=== PATIENT | female | born 1940 | race Caucasian/White ===

== ENCOUNTER 2017-11-14 08:34 | Emergency (ER) | payer MEDICARE ==
[2017-11-14] MEDS ORDERED: Diph,Pert(Acell),Tet Vac 0.5 ML SYR IM ONE (08:52)
--- NOTE | 2017-11-14 08:55 | Emergency Department Record ---
History of Present Illness - General Chief Complaint: Fall Injury Stated Complaint: FALL Time Seen by Provider: 11/14/17 08:50 Mode of Arrival: Ambulatory - History of Present Illness Initial Comments: patient fell 13 hours ago and has bilateral knee pains and she has an abrasion of the left knee. she thinks tetnus booster more than 5 and maybe 10 years. left arm pain is a bruise. 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, by family Place Fall Occurred: Other Loss of Consciousness: None Prolonged Down Time?: No Symptoms Prior to Fall: None Severity: Moderate Severity scale (1-10): 8 Quality: Aching - [place] Coma Scale Eye Response: (4) Open spontaneously Motor Response: (6) Obeys commands Verbal Response: (5) Oriented [place] Total: 15 - Related Data Previous Rx's Medication Instructions Recorded Pen Needle, Diabetic [Pen Needle] 1 each MC BID #100 dis.needle 06/26/15 Hydrocodone/Acetaminophen [Chambers 0.5 - 1 tab PO TID PRN #14 tab 11/14/17 5mg/325mg] Allergies Allergy/AdvReac Type Severity Reaction Status Date / Time No Known Drug Allergies Allergy Verified 11/14/17 08:46 Travel Screening - Travel/Exposure Within Last 30 Days Have you traveled within the last 30 days?: No - Travel/Exposure Within Last Year Have you traveled outside the [place] in the last year?: No - Additonal Travel Details Have you been exposed to anyone with a communicable illness?: No - Travel Symptoms Symptom Screening: None Review of Systems Reviewed: No additional complaints except as noted below Constitutional: Reports: As per HPI. Denies: Chills, Fever, Malaise, Night sweats, Weakness, Weight change Eyes: Reports: As per HPI. Denies: Eye discharge, Eye pain, Photophobia, Vision change ENT: Reports: As per HPI. Denies: Congestion, Dental pain, Ear pain, Epistaxis , Hearing loss, Throat pain Respiratory: Reports: As per HPI. Denies: Cough, Dyspnea, Hemoptysis, Stridor, Wheezes Cardiovascular: Reports: As per HPI. Denies: Arrhythmia, Chest pain, Dyspnea on exertion, Edema, Murmurs, Orthopnea, Palpitations, Paroxysmal nocturnal dyspnea, Rheumatic Fever, Syncope Endocrine: Reports: As per HPI. Denies: Fatigue, Heat or cold intolerance, Polydipsia, Polyuria Gastrointestinal: Reports: As per HPI. Denies: Abdominal pain, Constipation, Diarrhea, Hematemesis, Hematochezia, Melena, Nausea, Vomiting Genitourinary: Reports: As per HPI. Denies: Abnormal menses, Discharge, Dyspareunia, Dysuria, Frequency, Hematuria, Incontinence, Retention, Urgency Musculoskeletal: Reports: As per HPI. Denies: Arthralgia, Back pain, Gout, Joint swelling, Myalgia, Neck pain Skin: Reports: As per HPI. Denies: Bruising, Change in color, Change in hair/ nails, Lesions, Pruritus, Rash Neurological: Reports: As per HPI. Denies: Abnormal gait, Confusion, Headache, Numbness, Paresthesias, Seizure, Tingling, Tremors, Vertigo, Weakness Psychiatric: Reports: As per HPI. Denies: Anxiety, Auditory hallucinations, Depression, Homicidal thoughts, Suicidal thoughts, Visual hallucinations Hematological/Lymphatic: Reports: As per HPI. Denies: Anemia, Blood Clots, Easy bleeding, Easy bruising, Swollen glands Past Medical History - SOCIAL HISTORY Smoking Status: Former smoker Alcohol Use: None Drug Use: None - RESPIRATORY Hx Respiratory Disorders: No - CARDIOVASCULAR Hx Cardio Disorders: Yes Comment:: murmur - NEURO Hx Neuro Disorders: Yes Hx CVA: Yes (1988) - GI Hx GI Disorders: Yes Hx Pancreatitis: Yes - Hx Genitourinary Disorders: Yes Hx Bladder Problem: Yes Hx Renal Disease: Yes (stage 3) Hx UTI: Yes - ENDOCRINE Hx Endocrine Disorders: Yes Hx Diabetes: Yes Hx Thyroid Disease: Yes - MUSCULOSKELETAL Hx Musculoskeletal Disorders: Yes Hx Arthritis: Yes - PSYCH Hx Psych Problems: No - HEMATOLOGY/ONCOLOGY Hx Hematology/Oncology Disorders: No Family Medical History Any Significant Family History?: Yes Family Hx Comment (NOT TO BE USED IN PLACE OF ITEMS BELOW): brother- polio Hx Cancer: Father, Brother/Sister Hx Diabetes: Mother Hx Heart Disease: Brother/Sister Hx Stroke: Brother/Sister Physical Exam - General General Appearance: Alert, Oriented x3, Cooperative, No acute distress - Head Head exam: Normal inspection - Eye Eye exam: Normal appearance, PERRL Pupils: Normal accommodation - ENT ENT exam: Normal exam, Mucous membranes moist, Normal external ear exam, Normal orophraynx, TM's normal bilaterally Ear exam: Normal external inspection. negative: External canal tenderness Nasal Exam: Normal inspection. negative: Discharge, Sinus tenderness Mouth exam: Normal external inspection, Tongue normal Teeth exam: Normal inspection. negative: Dental caries Throat exam: Normal inspection. negative: Tonsillar erythema, Tonsillar exudate - Neck Neck exam: Normal inspection, Full ROM. negative: Tenderness - Respiratory Respiratory exam: Normal lung sounds bilaterally. negative: Respiratory distress - Cardiovascular Cardiovascular Exam: Regular rate, Normal rhythm, Normal heart sounds - GI/Abdominal GI/Abdominal exam: Soft, Normal bowel sounds. negative: Tenderness - Rectal Rectal exam: Deferred - exam: Deferred - Extremities Extremities exam: Normal inspection, Full ROM, Normal capillary refill, Tenderness (both knees, left is worse than right) - Back Back exam: Reports: Normal inspection, Full ROM. Denies: Muscle spasm, Rash noted, Tenderness - Neurological Neurological exam: Alert, Normal gait, Oriented X3, Reflexes normal - Psychiatric Psychiatric exam: Normal affect, Normal mood - Skin Skin exam: Dry, Intact, Normal color, Warm Course Vital Signs 11/14/17 08:41 Temperature 97.6 F Pulse Rate 73 Respiratory 18 Rate Blood Pressure 165/79 Pulse Ox 95 Medical Decision Making - Data Complexity MDM Data: X-Ray Ordered and/or Reviewed (negative for fractures, calcium in the arteries) Disposition Clinical Impression: Knee contusion Qualifiers: Encounter type: initial encounter Laterality: left Qualified Code(s): S80.02XA - Contusion of left knee, initial encounter Contusion of right knee Qualifiers: Encounter type: initial encounter Qualified Code(s): S80.01XA - Contusion of right knee, initial encounter Abrasion of knee, left Qualifiers: Encounter type: initial encounter Qualified Code(s): S80.212A - Abrasion, left knee, initial encounter Disposition: Home, Self-Care Condition: (1) Good Instructions: Fall Prevention for Older Adults (ED) Additional Instructions: tylenol for pain follow up with family in 3 days Prescriptions: Hydrocodone/Acetaminophen [Chambers 5mg/325mg] 0.5 - 1 tab PO TID PRN #14 tab PRN Reason: Pain - General Forms: Patient Portal Access Time of Disposition: 09:34 Quality - Quality Measures Quality Measures: N/A - Blood Pressure Screening Does Patient Have Any of the Following: No, Active Dx of HTN Blood Pressure Classification: Hypertensive Reading Systolic Measurement: 165 Diastolic Measurement: 79 Screening for High Blood Pressure: Patient Exclusion, Hx of HTN [G9744]
--- NOTE | 2017-11-14 12:33 | RADIOLOGY REPORT ---
DATE: 11/14/2017. EXAM: FOUR VIEWS OF THE LEFT KNEE. HISTORY: The patient has a history of a fall. TECHNIQUE: Four views of the left knee are provided. COMPARISON: None. FINDINGS: There is no radiographic evidence of a fracture or dislocation of the left knee. No significant soft tissue abnormalities are visualized. No significant suprapatellar bursal effusion is noted. There is mild to moderate medial compartment joint space loss with mild marginal osteophyte formation. Vascular calcification is noted. There is a lucency identified at the articular surface of the superior aspect of the patella which may represent osteochondral defect. IMPRESSION: DEGENERATIVE CHANGES OF THE LEFT KNEE ARE NOTED WITHOUT RADIOGRAPHIC EVIDENCE OF AN ACUTE PROCESS INVOLVING THE LEFT KNEE. IF THERE IS FURTHER CLINICAL CONCERN, THEN AN MRI OF THE LEFT KNEE CAN BE OBTAINED FOR FURTHER EVALUATION. JOB NUMBER: [id number] MTDD
--- NOTE | 2017-11-14 12:38 | RADIOLOGY REPORT ---
DATE: 11/14/2017. EXAM: FOUR VIEWS OF THE RIGHT KNEE. HISTORY: The patient has a history of a fall. TECHNIQUE: Four views of the right knee are provided without comparison examinations. FINDINGS: There is no radiographic evidence of a fracture or dislocation of the right knee. Vascular calcification is noted at the posterior aspect of the right knee. Moderate medial compartment joint space loss is noted with marginal osteophyte formation. No significant suprapatellar bursal effusion is noted. IMPRESSION: DEGENERATIVE CHANGES OF THE RIGHT KNEE ARE NOTED WITHOUT RADIOGRAPHIC EVIDENCE OF AN ACUTE PROCESS INVOLVING THE RIGHT KNEE. IF THERE IS FURTHER CLINICAL CONCERN, AN MRI OF THE RIGHT KNEE CAN BE OBTAINED FOR FURTHER EVALUATION. JOB NUMBER: [id number] MTDD
== END 2017-11-14 10:01 | disposition home or self-care (01) ==
LOC: ER 08:34
DX: S80.02XA Contusion of left knee, initial encounter (principal); S80.01XA Contusion of right knee, initial encounter; S80.212A Abrasion, left knee, initial encounter; W10.9XXA Fall (on) (from) unspecified stairs and steps, initial encounter; E11.9 Type 2 diabetes mellitus without complications; Z86.73 Personal history of transient ischemic attack (TIA), and cerebral infarction without residual deficits; Z87.891 Personal history of nicotine dependence
CPT/HCPCS: 90715; 96372; 99283

== ENCOUNTER 2019-02-12 11:09 | Emergency (ER) | payer MEDICARE ==
[2019-02-12] MEDS ORDERED: ASPIRIN 81 MG CHEWABLE TABLET PO ONE (11:26)
[2019-02-12] MEDS ORDERED: FUROSEMIDE IV 20MG/2ML VIAL IVP ONE (11:28)
--- NOTE | 2019-02-12 11:35 | Emergency Department Record ---
History of Present Illness - General Chief Complaint: Difficulty Breathing Stated Complaint: CLAY,SLURRED SPEECH Time Seen by Provider: 02/12/19 11:25 Source: Patient Mode of Arrival: Wheelchair - History of Present Illness Initial Comments: patient sob and slurred speech for 2 days and family stated it started after her heart cath which was done 2 days ago possibly some before heart cath and family said she has had TIA prior but the slurring much worse yesterday. She had a stent placed and told she needs two valves fixed and may need bipass surgery. She has an appointment with Dr Ventura. Patient denies chesp pain she also had some left leg discomfort after the cath and better since leaving the hospital. Primary Dr Dr. Mark. [employer] Dr. Momin. PMH DM, hypertension, CAD, previous TIA's, hypothyroidism, hyperchol Previous CVA with left sided weakness about 1991 Onset/Timin -: Days(s) Worsens With: Exertion Known History Of: Congestive heart failure, Other Treatments Prior to Arrival: None - Related Data Home Oxygen Therapy: No Home Medications Medication Instructions Recorded Confirmed Last Taken Clopidogrel Bisulfate [Clopidogrel] 75 mg PO DAILY 02/12/19 02/12/19 02/12/19 Furosemide [Lasix] 20 mg PO DAILY 02/12/19 02/12/19 02/12/19 Metoprolol Succinate [Toprol Xl] 25 mg PO DAILY 02/12/19 02/12/19 02/12/19 Allergies Allergy/AdvReac Type Severity Reaction Status Date / Time No Known Drug Allergies Allergy Verified 02/12/19 11:18 Travel Screening - Travel/Exposure Within Last 30 Days Have you traveled within the last 30 days?: No - Travel/Exposure Within Last Year Have you traveled outside the [place] in the last year?: No - Additonal Travel Details Have you been exposed to anyone with a communicable illness?: No - Travel Symptoms Symptom Screening: None Review of Systems Reviewed: No additional complaints except as noted below Constitutional: Reports: As per HPI. Denies: Chills, Fever, Malaise, Night sweats, Weakness, Weight change Eyes: Reports: As per HPI. Denies: Eye discharge, Eye pain, Photophobia, Vision change ENT: Reports: As per HPI. Denies: Congestion, Dental pain, Ear pain, Epistaxis , Hearing loss, Throat pain Respiratory: Reports: As per HPI, Dyspnea. Denies: Cough, Hemoptysis, Stridor, Wheezes Cardiovascular: Reports: As per HPI. Denies: Arrhythmia, Chest pain, Dyspnea on exertion, Edema, Murmurs, Orthopnea, Palpitations, Paroxysmal nocturnal dyspnea, Rheumatic Fever, Syncope Endocrine: Reports: As per HPI. Denies: Fatigue, Heat or cold intolerance, Polydipsia, Polyuria Gastrointestinal: Reports: As per HPI. Denies: Abdominal pain, Constipation, Diarrhea, Hematemesis, Hematochezia, Melena, Nausea, Vomiting Genitourinary: Reports: As per HPI. Denies: Abnormal menses, Discharge, Dyspareunia, Dysuria, Frequency, Hematuria, Incontinence, Retention, Urgency Musculoskeletal: Reports: As per HPI. Denies: Arthralgia, Back pain, Gout, Joint swelling, Myalgia, Neck pain Skin: Reports: As per HPI. Denies: Bruising, Change in color, Change in hair/ nails, Lesions, Pruritus, Rash Neurological: Reports: As per HPI, Other (slurred speech). Denies: Abnormal gait, Confusion, Headache, Numbness, Paresthesias, Seizure, Tingling, Tremors, Vertigo, Weakness Psychiatric: Reports: As per HPI. Denies: Anxiety, Auditory hallucinations, Depression, Homicidal thoughts, Suicidal thoughts, Visual hallucinations Hematological/Lymphatic: Reports: As per HPI. Denies: Anemia, Blood Clots, Easy bleeding, Easy bruising, Swollen glands Past Medical History - SOCIAL HISTORY Smoking Status: Former smoker Alcohol Use: None Drug Use: None - RESPIRATORY Hx Respiratory Disorders: No - CARDIOVASCULAR Hx Cardio Disorders: Yes Comment:: murmur - NEURO Hx Neuro Disorders: Yes Hx CVA: Yes (1988) - GI Hx GI Disorders: Yes Hx Pancreatitis: Yes - Hx Genitourinary Disorders: Yes Hx Bladder Problem: Yes Hx Renal Disease: Yes (stage 3) Hx UTI: Yes - ENDOCRINE Hx Endocrine Disorders: Yes Hx Diabetes: Yes Hx Thyroid Disease: Yes - MUSCULOSKELETAL Hx Musculoskeletal Disorders: Yes Hx Arthritis: Yes - PSYCH Hx Psych Problems: No - HEMATOLOGY/ONCOLOGY Hx Hematology/Oncology Disorders: No Family Medical History Any Significant Family History?: Yes Family Hx Comment (NOT TO BE USED IN PLACE OF ITEMS BELOW): brother- polio Hx Cancer: Father, Brother/Sister Hx Diabetes: Mother Hx Heart Disease: Brother/Sister Hx Stroke: Brother/Sister Physical Exam - General General Appearance: Alert, Oriented x3, Cooperative, Mild distress - Head Head exam: Normal inspection - Eye Eye exam: Normal appearance, PERRL Pupils: Normal accommodation - ENT ENT exam: Normal exam, Mucous membranes moist, Normal external ear exam, Normal orophraynx, TM's normal bilaterally Ear exam: Normal external inspection. negative: External canal tenderness Nasal Exam: Normal inspection. negative: Discharge, Sinus tenderness Mouth exam: Normal external inspection, Tongue normal Teeth exam: Normal inspection. negative: Dental caries Throat exam: Normal inspection. negative: Tonsillar erythema, Tonsillar exudate - Neck Neck exam: Normal inspection, Full ROM. negative: Tenderness - Respiratory Respiratory exam: Normal lung sounds bilaterally. negative: Respiratory distress - Cardiovascular Cardiovascular Exam: Regular rate, Normal rhythm, Normal heart sounds, Systolic murmur - GI/Abdominal GI/Abdominal exam: Soft, Normal bowel sounds. negative: Tenderness - Rectal Rectal exam: Deferred - exam: Deferred - Extremities Extremities exam: Normal inspection, Full ROM, Normal capillary refill. negative: Tenderness - Back Back exam: Reports: Normal inspection, Full ROM. 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 old CVA 1992 on the left side 02/12/19 12:12 02/12/19 12:13 Reevaluation #2: discussed case with Dr. Akers cardiology [facility] and will transfer to [facility]. Discussed case with [facility] and [facility] with ED Dr Macario [facility] recommendation to go to [facility] and hospitalist will call us back. 02/12/19 13:36 02/12/19 13:43 Reevaluation #3: discussed case with Dr Vickers and will transfer to [facility], after discussion with Dr. Cabello at [facility] and will send back to [facility] for further care. Dr. Alfredo said no intervention needed. 02/12/19 14:05 02/12/19 14:07 Medical Decision Making - Data Complexity MDM Data: Labs Ordered and/or Reviewed (trop t elevated 0.115), X-Ray Ordered and/or Reviewed (CT head hypodense area in the oscar right side and old left basal ganglion cva), EKG Ordered and/or Reviewed (NSR, similiar to the EKG on , st depression 1,avl) - Lab Data Result diagrams: 02/12/19 11:26 02/12/19 12:12 Disposition Clinical Impression: Slurred speech, Troponin level elevated Dyspnea Qualifiers: Dyspnea type: shortness of breath Qualified Code(s): R06.02 - Shortness of breath CVA (cerebral vascular accident) Qualifiers: CVA mechanism: unspecified Qualified Code(s): I63.9 - Cerebral infarction, unspecified Disposition: Acute Care Hospital Transfer Condition: (2) Stable Forms: Patient Portal Access Time of Disposition: 13:44 Quality - Quality Measures Quality Measures: N/A - Blunt Head Trauma - Adult ICD10 Codes Entered: No Was CT ordered: Yes Patient Presented Within 24 Hours of Injury: No Utilization of CT for Minor Blunt Head Trauma: < CT Done, Appropriate Indication > [G9529] Additional Inclusion Criteria: More than 24hrs (OR) GCS not 15 (OR) CT not ordered. Indications For CT: Focal Neurological Deficit Not Eligible Reason: Injury Greater Than 24 Hours Ago - Blood Pressure Screening Does Patient Have Any of the Following: No, Active Dx of HTN Blood Pressure Classification: Hypertensive Reading Systolic Measurement: 141 Diastolic Measurement: 76 Screening for High Blood Pressure: Patient Exclusion, Hx of HTN [G9744]
--- NOTE | 2019-02-12 11:46 | Emergency Department Record ---
History of Present Illness - General Chief Complaint: Difficulty Breathing Stated Complaint: CLAY,SLURRED SPEECH Time Seen by Provider: 02/12/19 11:25 Source: Patient Mode of Arrival: Wheelchair - History of Present Illness Onset/Timin -: Days(s) Worsens With: Exertion Known History Of: Congestive heart failure, Other Treatments Prior to Arrival: None - Related Data Home Oxygen Therapy: No Home Medications Medication Instructions Recorded Confirmed Last Taken Clopidogrel Bisulfate [Clopidogrel] 75 mg PO DAILY 02/12/19 02/12/19 02/12/19 Furosemide [Lasix] 20 mg PO DAILY 02/12/19 02/12/19 02/12/19 Metoprolol Succinate [Toprol Xl] 25 mg PO DAILY 02/12/19 02/12/19 02/12/19 Allergies Allergy/AdvReac Type Severity Reaction Status Date / Time No Known Drug Allergies Allergy Verified 02/12/19 11:18 Travel Screening - Travel/Exposure Within Last 30 Days Have you traveled within the last 30 days?: No - Travel/Exposure Within Last Year Have you traveled outside the [place] in the last year?: No - Additonal Travel Details Have you been exposed to anyone with a communicable illness?: No - Travel Symptoms Symptom Screening: None Review of Systems Constitutional: Reports: As per HPI. Denies: Chills, Fever, Malaise, Night sweats, Weakness, Weight change Eyes: Reports: As per HPI. Denies: Eye discharge, Eye pain, Photophobia, Vision change ENT: Reports: As per HPI. Denies: Congestion, Dental pain, Ear pain, Epistaxis , Hearing loss, Throat pain Respiratory: Reports: As per HPI, Dyspnea. Denies: Cough, Hemoptysis, Stridor, Wheezes Cardiovascular: Reports: As per HPI. Denies: Arrhythmia, Chest pain, Dyspnea on exertion, Edema, Murmurs, Orthopnea, Palpitations, Paroxysmal nocturnal dyspnea, Rheumatic Fever, Syncope Endocrine: Reports: As per HPI. Denies: Fatigue, Heat or cold intolerance, Polydipsia, Polyuria Gastrointestinal: Reports: As per HPI. Denies: Abdominal pain, Constipation, Diarrhea, Hematemesis, Hematochezia, Melena, Nausea, Vomiting Genitourinary: Reports: As per HPI. Denies: Abnormal menses, Discharge, Dyspareunia, Dysuria, Frequency, Hematuria, Incontinence, Retention, Urgency Musculoskeletal: Reports: As per HPI. Denies: Arthralgia, Back pain, Gout, Joint swelling, Myalgia, Neck pain Skin: Reports: As per HPI. Denies: Bruising, Change in color, Change in hair/ nails, Lesions, Pruritus, Rash Neurological: Reports: As per HPI, Other (slurred speech). Denies: Abnormal gait, Confusion, Headache, Numbness, Paresthesias, Seizure, Tingling, Tremors, Vertigo, Weakness Psychiatric: Reports: As per HPI. Denies: Anxiety, Auditory hallucinations, Depression, Homicidal thoughts, Suicidal thoughts, Visual hallucinations Hematological/Lymphatic: Reports: As per HPI. Denies: Anemia, Blood Clots, Easy bleeding, Easy bruising, Swollen glands Past Medical History - SOCIAL HISTORY Smoking Status: Former smoker Alcohol Use: None Drug Use: None - RESPIRATORY Hx Respiratory Disorders: No - CARDIOVASCULAR Hx Cardio Disorders: Yes Comment:: murmur - NEURO Hx Neuro Disorders: Yes Hx CVA: Yes (1988) - GI Hx GI Disorders: Yes Hx Pancreatitis: Yes - Hx Genitourinary Disorders: Yes Hx Bladder Problem: Yes Hx Renal Disease: Yes (stage 3) Hx UTI: Yes - ENDOCRINE Hx Endocrine Disorders: Yes Hx Diabetes: Yes Hx Thyroid Disease: Yes - MUSCULOSKELETAL Hx Musculoskeletal Disorders: Yes Hx Arthritis: Yes - PSYCH Hx Psych Problems: No - HEMATOLOGY/ONCOLOGY Hx Hematology/Oncology Disorders: No Family Medical History Any Significant Family History?: Yes Family Hx Comment (NOT TO BE USED IN PLACE OF ITEMS BELOW): brother- polio Hx Cancer: Father, Brother/Sister Hx Diabetes: Mother Hx Heart Disease: Brother/Sister Hx Stroke: Brother/Sister Course Vital Signs 02/12/19 11:19 Temperature 97.6 F Pulse Rate 73 Respiratory 24 Rate Blood Pressure 141/76 Pulse Ox 96 Medical Decision Making - Lab Data Result diagrams: 02/12/19 11:26 02/12/19 11:26 Disposition Clinical Impression: Slurred speech Dyspnea Qualifiers: Dyspnea type: shortness of breath Qualified Code(s): R06.02 - Shortness of breath Forms: Patient Portal Access Quality - Quality Measures Quality Measures: Blunt Head Trauma (>2yr) - Blunt Head Trauma - Adult Quality Measure: Measure #415: Utilization of CT for Minor Blunt Head Trauma ICD10 Codes Entered: Yes [place] Score: Please complete [place] Coma Scale above - Blood Pressure Screening Does Patient Have Any of the Following: No Blood Pressure Classification: Hypertensive Reading Systolic Measurement: 141 Diastolic Measurement: 76
[2019-02-12 12:10] LABS: BASO % 0.4 % (0-6); EOS % 0.5 % (0-6); GRAN % 79.5 % (47-80); HEMATOCRIT 34.8 % (35.0-47.0); LYMPH % 13.2 % (16-45); MEAN CELL VOLUME 92.1 fl (81-97); MEAN CORPUSCULAR HEMOGLOBIN 29.1 pg (27-33); MEAN CORPUSCULAR HGB CONC 31.6 g/dl (32-36); MEAN PLATELET VOLUME 10.9 fl (7.4-10.4); MONO % 6.4 % (0-9); PLATELET COUNT 247 K/uL (130-400); RED BLOOD COUNT 3.78 M/uL (3.80-5.40); RED CELL DISTRIBUTION WIDTH 13.9 % (11.5-14.5); WHITE BLOOD COUNT W/O DIFF 10.1 K/uL (4.2-12.2)
[2019-02-12 12:18] LABS: CREATININE 1.5 mg/dL (0.5-0.9)
[2019-02-12 12:22] LABS: INR 1.1; PARTIAL THROMBOPLASTIN TIME 21.5 SECONDS (24.5-39.1); PROTHROMBIN TIME (PATIENT) 10.6 SECONDS (9.5-12.1)
--- NOTE | 2019-02-14 17:43 | CT SCAN REPORT ---
EXAM: CT SCAN HEAD WO CONTRAST HISTORY: SLURRED SPEECH, MUSCLE WEAKNESS, AND SHORTNESS OF BREATH. RECENT HEART CATHETERIZATION TWO DAYS AGO. TECHNIQUE: Standard CT imaging of the brain was performed without contrast. COMPARISON: August 23, 2015. FINDINGS: The brain volume appears normal for the patient's age. There is an old infarct within the left frontoparietal region. An old lacunar infarct is noted within the left basal ganglia. Patchy chronic small vessel ischemic changes are present with the periventricular and subcortical white matter of both cerebral hemispheres and appear stable. An ill-defined area of decreased attenuation is present within the adalid on the right. This is also suggestive of an infarct of uncertain age. There is no associated intracranial hemorrhage. There is no mass, mass effect, or abnormal extra-axial fluid. The skull is intact. There is chronic hyperostosis frontalis internus. The orbits, sinuses, and left mastoid air cells are normal. There is a small amount of nonspecific fluid within the mastoid air cells. IMPRESSION: 1. SMALL AGE-INDETERMINATE INFARCT WITHIN THE ADALID ON THE RIGHT. THIS COULD BE FURTHER ASSESSED WITH MRI IF INDICATED. 2. STABLE OLD INFARCTS WITHIN THE LEFT FRONTOPARIETAL AND LEFT BASAL GANGLIA REGIONS. 3. STABLE CHRONIC SMALL VESSEL ISCHEMIC CHANGES. JOB NUMBER: [id number] [facility]
--- NOTE | 2019-02-14 17:45 | RADIOLOGY REPORT ---
EXAM: CHEST 1 VIEW HISTORY: SHORTNESS OF BREATH. TECHNIQUE: Two AP upright views of the chest were obtained. COMPARISON: February 10, 2019 and June 07, 2016. FINDINGS: The heart is normal in size. There is calcification of the aorta. The pulmonary vasculature appears within normal limits. There are mild bibasilar infiltrates or atelectasis, right greater than left. There is blunting of the costophrenic angle suggesting tiny effusions. There is no pneumothorax. The bones appear intact. IMPRESSION: MINOR BIBASILAR ATELECTASIS OR INFILTRATE AND TINY BILATERAL PLEURAL EFFUSIONS. [facility]: [id number] [facility]
== END 2019-02-12 15:57 | disposition short-term general hospital (02) ==
LOC: ER 11:09
DX: I63.9 Cerebral infarction, unspecified (principal); R47.81 Slurred speech; R79.89 Other specified abnormal findings of blood chemistry; R06.02 Shortness of breath; I50.9 Heart failure, unspecified; E11.9 Type 2 diabetes mellitus without complications; I10 Essential (primary) hypertension; Z95.5 Presence of coronary angioplasty implant and graft; Z87.891 Personal history of nicotine dependence; Z86.73 Personal history of transient ischemic attack (TIA), and cerebral infarction without residual deficits
CPT/HCPCS: 70450; 71045; 80048; 84484; 85025; 85610; 85730; 93005; 93010; 96374; 99285; J1940